=== PATIENT | female | born 1960 | race Caucasian/White ===

== ENCOUNTER 2016-07-08 17:22 | Inpatient (IN) | payer OTHER, MEDICAID, MEDICARE ==
[~2016-07-08] VITALS: Ht 167.6 cm; Wt 68.0 kg
[~2016-07-08 17:22] MED LIST: GABA-531 PO; LEVOTHROID PO; TRAM50TA4 PO
[2016-07-08] MEDS ORDERED: LEVE500T53 PO (17:53)
[2016-07-08] MEDS ORDERED: DIAZ2 PO (17:53)
[2016-07-08] MEDS ORDERED: LEVO112T4 PO (17:53)
[2016-07-08] MEDS ORDERED: NORT25 PO (17:53)
[2016-07-08] MEDS ORDERED: PANT40TA25 PO (17:53)
[2016-07-08] MEDS ORDERED: FOLI1 PO (17:53)
[2016-07-08] MEDS ORDERED: SPIR50 PO (17:53)
[2016-07-08] MEDS ORDERED: BUME1TAB30 PO (17:53)
[2016-07-08] MEDS ORDERED: ACAM333T7 PO (17:53)
[2016-07-08] MEDS ORDERED: PROP10 PO (17:53)
[2016-07-08] MEDS ORDERED: KCL10IV PO (17:53)
[2016-07-08] MEDS ORDERED: LACT30L PO (17:53)
[2016-07-08 18:10] LABS: BASOPHILS % (AUTO) 2.2 % (0.0-2.0); EOSINOPHILS % (AUTO) 0.6 % (1.0-6.0); HEMATOCRIT 39.3 % (36-46); HEMOGLOBIN 13.2 g/dL (12.0-16.0); LYMPHOCYTES # (AUTO) 2.4 K/uL (1.0-4.8); LYMPHOCYTES % (AUTO) 30.2 % (22.0-44.0); MEAN CORPUSCULAR HEMOGLOBIN 31.7 pg (26.0-34.0); MEAN CORPUSCULAR HGB CONC 33.5 G/dL (31.0-37.0); MEAN CORPUSCULAR VOLUME 95 fL (80-100); MONOCYTES # (AUTO) 0.4 K/uL (0.1-1.0); MONOCYTES % (AUTO) 4.9 % (2.0-9.0); NEUTROPHILS # (AUTO) 4.9 K/uL (1.8-7.7); NEUTROPHILS % (AUTO) 62.1 % (40.0-70.0); PLATELET COUNT (AUTO) 244 K/uL (150-450); RED BLOOD CELL COUNT(AUTO) 4.15 MIL/uL (4.00-5.20); RED CELL DISTRIBUTION WIDTH 13.1 % (11.5-14.5); WHITE BLOOD COUNT (AUTO) 7.9 K/uL (4.5-11.0)
[2016-07-08 18:29] LABS: ANION GAP 11 mmol/L (8-16); CALCIUM, TOTAL 9.2 mg/dL (8.8-10.5); CARBON DIOXIDE 26 mmol/L (22-29); CHLORIDE 89 mmol/L (98-107); CREATININE 0.61 mg/dL (0.60-1.30); GLOMERULAR FILTR. RATE CALC > 60 mL/min (>60); POTASSIUM 4.7 mmol/L (3.5-5.1); SODIUM SERUM 126 mmol/L (136-145); UREA NITROGEN, BLOOD 9 mg/dL (7-18)
[2016-07-08 18:34] LABS: ALANINE AMINOTRANSFERASE 20 U/L (12-78); ALBUMIN 4.4 g/dL (3.4-5.0); BILIRUBIN,TOTAL 0.4 mg/dL (0.1-1.0); CREATINE KINASE, TOTAL 40 U/L (26-192); TOTAL PROTEIN, SERUM 8.6 g/dL (6.4-8.2)
[2016-07-08 18:40] LABS: INR 1.2 (0.9-1.1); PROTHROMBIN TIME 12.3 SEC (9.4-11.6)
[2016-07-08 18:46] LABS: SALICYLATE < 2.8 mg/dL (2.8-20.0)
[2016-07-08 18:50] LABS: ACETAMINOPHEN < 2 mcg/mL (10-30)
[2016-07-08 18:58] LABS: ASPARTATE AMINOTRANSFERASE 26 U/L (15-37)
[2016-07-08] MEDS ORDERED: SODIUM CHLORIDE 0.9% 1,000 ML IV ONE (19:15)
[2016-07-08 19:19] LABS: APPEARANCE,URINE CLEAR (CLEAR); GLUCOSE, URINE (UA) NEGATIVE (NEGATIVE); KETONES,URINE NEGATIVE (NEGATIVE); LEUKOCYTE ESTERASE ,URINE NEGATIVE (NEGATIVE); OCCULT BLOOD,URINE TRACE (NEGATIVE); PROTEIN,URINE NEGATIVE (NEGATIVE)
[2016-07-08] MEDS ORDERED: KDUR10 PO (19:20)
[2016-07-08] MEDS ORDERED: PROP20 PO (19:20)
[2016-07-08 19:25] LABS: ADD UA MICROSCOPIC YES
[2016-07-08 19:40] LABS: SQUAMOUS EPITHELIAL CELL,UR Few /LPF (None Seen)
[2016-07-08 19:48] LABS: RBC,URINE 0-2 /HPF (0-2)
[2016-07-08 19:49] LABS: WBC,URINE None Seen /HPF (0-5)
[2016-07-08] MEDS ORDERED: HALOPERIDOL LACTATE 5 MG/ML VIAL IM ONE (20:00)
[2016-07-08] MEDS ORDERED: DiphenhydrAMINE HCL 50 MG/ML VIAL IM ONE (20:00)
[2016-07-08] MEDS ORDERED: ZOLPIDEM TARTRATE 10 MG TABLET PO PRN (22:30)
[2016-07-08] MEDS ORDERED: HALOPERIDOL 5 MG TABLET PO PRN (22:30)
[2016-07-09 01:23] VITALS: BP 149/89
[2016-07-09] MEDS: LORazepam 2 MG TABLET PO PRN ×2 (03:01→13:08)
[2016-07-09 05:31] LABS: GLUCOSE,POINT OF CARE 116 MG/DL (70-110)
[2016-07-09 10:41] VITALS: BP 144/86
[2016-07-09] MEDS ORDERED: LACTULOSE 20 GM/30 ML SOLUTION UDCUP PO PRN (12:45)
[2016-07-09] MEDS: SODIUM CHLORIDE 1 GM TABLET PO SCH ×2 (13:47→16:59)
[2016-07-09] MEDS ORDERED: PANT40TA25 PO (16:23)
[2016-07-09] MEDS ORDERED: NACL1 PO (16:25)
[2016-07-09] MEDS ORDERED: LevETIRAcetam 500 MG TABLET PO SCH (17:00)
[2016-07-10] MEDS ORDERED: LEVOTHYROXINE SODIUM 112 MCG TABLET PO SCH (07:00)
[2016-07-10] MEDS ORDERED: PANTOPRAZOLE SODIUM 40 MG DR TABLET PO SCH (09:00)
[2016-07-10] MEDS ORDERED: FOLIC ACID 1 MG TABLET PO SCH (09:00)
[2016-07-10] MEDS ORDERED: SERTRALINE HCL 50 MG TABLET PO SCH (09:00)
== END 2016-07-09 18:25 | disposition short-term general hospital (02) | DRG 885 ==
LOC: EMS 17:23 → 3EI 23:30
DX: F33.2 Major depressive disorder, recurrent severe without psychotic features (principal); E87.1 Hypo-osmolality and hyponatremia; E03.9 Hypothyroidism, unspecified; F10.10 Alcohol abuse, uncomplicated; F14.10 Cocaine abuse, uncomplicated; I10 Essential (primary) hypertension; K21.9 Gastro-esophageal reflux disease without esophagitis; K74.60 Unspecified cirrhosis of liver; M19.90 Unspecified osteoarthritis, unspecified site; R56.9 Unspecified convulsions; T42.4X2A Poisoning by benzodiazepines, intentional self-harm, initial encounter; T43.222A Poisoning by selective serotonin reuptake inhibitors, intentional self-harm, initial encounter; G89.29 Other chronic pain; G62.9 Polyneuropathy, unspecified; Z98.51 Tubal ligation status; Z87.442 Personal history of urinary calculi; Z88.2 Allergy status to sulfonamides; Z88.8 Allergy status to other drugs, medicaments and biological substances; Z79.899 Other long term (current) drug therapy; Y93.89 Activity, other specified; X83.8XXA Intentional self-harm by other specified means, initial encounter; Y92.89 Other specified places as the place of occurrence of the external cause; Y99.8 Other external cause status; Z98.890 Other specified postprocedural states; Z87.81 Personal history of (healed) traumatic fracture; Z83.79 Family history of other diseases of the digestive system
CPT/HCPCS: 82962; 93005; 96360; 96361; 96372; 99285; G0480; G0481; J1200; J1630; J7030

== ENCOUNTER 2022-04-29 21:58 | Emergency (ER) | payer MEDICARE, MEDICAID ==
[~2022-04-29] VITALS: Ht 167.6 cm; Wt 64.9 kg
[~2022-04-29 21:58] MED LIST changes: +FOLI-130 PO; -GABA-531 PO; +LEVE500T20 PO; +LEVO112T4 PO; -LEVOTHROID PO; +NACL1 PO; +PANT-31 PO; -TRAM50TA4 PO
[2022-04-29] MEDS ORDERED: SODIUM CHLORIDE 0.9% 1,000 ML IV ONE (22:30)
[2022-04-29 22:52] LABS: ANION GAP 16 mmol/L (8-16); CALCIUM, TOTAL 9.7 mg/dL (8.8-10.5); CARBON DIOXIDE 24 mmol/L (22-29); CHLORIDE 100 mmol/L (98-107); CREATININE 0.61 mg/dL (0.60-1.30); GLUCOSE,RANDOM 111 mg/dL (70-110); POTASSIUM 3.8 mmol/L (3.5-5.1); SODIUM SERUM 140 mmol/L (136-145); UREA NITROGEN, BLOOD 5 mg/dL (7-18)
[2022-04-29 22:54] LABS: GLOMERULAR FILTR. RATE CALC > 60 mL/min (>60)
[2022-04-29 22:56] LABS: BASOPHILS % (AUTO) 1.1 % (0.0-2.0); EOSINOPHILS % (AUTO) 1.1 % (1.0-6.0); HEMATOCRIT 48.5 % (36-46); HEMOGLOBIN 16.2 g/dL (12.0-16.0); LYMPHOCYTES # (AUTO) 2.6 K/uL (1.0-4.8); LYMPHOCYTES % (AUTO) 35.7 % (22.0-44.0); MEAN CORPUSCULAR HEMOGLOBIN 34.8 pg (26.0-34.0); MEAN CORPUSCULAR HGB CONC 33.5 G/dL (31.0-37.0); MEAN CORPUSCULAR VOLUME 104 fL (80-100); MONOCYTES # (AUTO) 0.4 K/uL (0.1-1.0); MONOCYTES % (AUTO) 5.4 % (2.0-9.0); NEUTROPHILS # (AUTO) 4.1 K/uL (1.8-7.7); NEUTROPHILS % (AUTO) 56.7 % (40.0-70.0); PLATELET COUNT (AUTO) 139 K/uL (150-450); RED BLOOD CELL COUNT(AUTO) 4.66 MIL/uL (4.00-5.20); RED CELL DISTRIBUTION WIDTH 13.3 % (11.5-14.5)
[2022-04-29 22:58] LABS: ALANINE AMINOTRANSFERASE 33 U/L (12-78); ALBUMIN 4.9 g/dL (3.4-5.0); ALKALINE PHOSPHATASE 177 U/L (46-116); ASPARTATE AMINOTRANSFERASE 56 U/L (15-37); BILIRUBIN,TOTAL 0.7 mg/dL (0.1-1.0); TOTAL PROTEIN, SERUM 8.7 g/dL (6.4-8.2)
[2022-04-29 23:07] LABS: ACETAMINOPHEN < 2 mcg/mL (10-30)
[2022-04-29 23:24] LABS: SALICYLATE 2.7 mg/dL (2.8-20.0)
[2022-04-29] MEDS ORDERED: LORazepam 1 MG TABLET PO ONE (23:30)
[2022-04-30] MEDS ORDERED: DiphenhydrAMINE HCL 50 MG/ML VIAL ONE (00:07)
[2022-04-30] MEDS ORDERED: HALOPERIDOL LACTATE 5 MG/ML VIAL ONE (00:07)
[2022-04-30] MEDS ORDERED: LORazepam 2 MG/ML VIAL IM ONE (00:15)
[2022-04-30] MEDS ORDERED: DiphenhydrAMINE HCL 50 MG/ML VIAL IM ONE (00:15)
[2022-04-30] MEDS ORDERED: HALOPERIDOL LACTATE 5 MG/ML VIAL IM ONE (00:15)
[2022-04-30 08:31] VITALS: BP 159/82
== END 2022-04-30 09:12 | disposition home or self-care (01) ==
LOC: EMS 22:00
DX: R45.851 Suicidal ideations (principal); F10.10 Alcohol abuse, uncomplicated; E03.9 Hypothyroidism, unspecified; G62.9 Polyneuropathy, unspecified; G89.29 Other chronic pain; Z98.51 Tubal ligation status; Z98.890 Other specified postprocedural states; Z88.2 Allergy status to sulfonamides; Z88.8 Allergy status to other drugs, medicaments and biological substances
CPT/HCPCS: 99285; 96360; 80053; 85025; 36415; 96372; G0480; J7030; J1200; J1630; J2060; G0481; G0482

== ENCOUNTER 2022-05-01 15:27 | Inpatient (IN) | payer OTHER, MEDICAID ==
[~2022-05-01] VITALS: Ht 167.6 cm; Wt 64.0 kg
[2022-05-01 16:11] LABS: BASOPHILS % (AUTO) 0.7 % (0.0-2.0); HEMOGLOBIN 15.6 g/dL (12.0-16.0); LYMPHOCYTES # (AUTO) 1.5 K/uL (1.0-4.8); MONOCYTES # (AUTO) 0.3 K/uL (0.1-1.0); NEUTROPHILS # (AUTO) 3.1 K/uL (1.8-7.7)
[2022-05-01 16:14] LABS: EOSINOPHILS % (AUTO) 1.2 % (1.0-6.0); HEMATOCRIT 46.3 % (36-46); LYMPHOCYTES % (AUTO) 30.5 % (22.0-44.0); MEAN CORPUSCULAR HEMOGLOBIN 35.1 pg (26.0-34.0); MEAN CORPUSCULAR HGB CONC 33.7 G/dL (31.0-37.0); MEAN CORPUSCULAR VOLUME 104 fL (80-100); MONOCYTES % (AUTO) 6.5 % (2.0-9.0); NEUTROPHILS % (AUTO) 61.1 % (40.0-70.0); PLATELET COUNT (AUTO) 132 K/uL (150-450); RED BLOOD CELL COUNT(AUTO) 4.45 MIL/uL (4.00-5.20); RED CELL DISTRIBUTION WIDTH 13.2 % (11.5-14.5)
[2022-05-01 16:20] LABS: ANION GAP 14 mmol/L (8-16); CALCIUM, TOTAL 9.5 mg/dL (8.8-10.5); CARBON DIOXIDE 25 mmol/L (22-29); CHLORIDE 101 mmol/L (98-107); CREATININE 0.65 mg/dL (0.60-1.30); GLOMERULAR FILTR. RATE CALC > 60 mL/min (>60); GLUCOSE,RANDOM 106 mg/dL (70-110); POTASSIUM 3.5 mmol/L (3.5-5.1); SODIUM SERUM 140 mmol/L (136-145); UREA NITROGEN, BLOOD 6 mg/dL (7-18)
[2022-05-01 16:25] LABS: ALANINE AMINOTRANSFERASE 46 U/L (12-78); ALBUMIN 4.9 g/dL (3.4-5.0); ALKALINE PHOSPHATASE 202 U/L (46-116); ASPARTATE AMINOTRANSFERASE 72 U/L (15-37); BILIRUBIN,TOTAL 0.9 mg/dL (0.1-1.0); TOTAL PROTEIN, SERUM 8.9 g/dL (6.4-8.2)
[2022-05-01 16:27] LABS: ACETAMINOPHEN < 2 mcg/mL (10-30)
[2022-05-01 16:34] LABS: SALICYLATE 2.1 mg/dL (2.8-20.0)
[2022-05-01] MEDS ORDERED: OLANZapine 5 MG RAPDIS TABLET PO PRN (17:30)
[2022-05-01] MEDS ORDERED: ZOLPIDEM TARTRATE 10 MG TABLET PO PRN (17:30)
[2022-05-01 18:12] LABS: COVID AG,FIA SOURCE NASOPHARYNGEAL
[2022-05-01] MEDS: LORazepam 2 MG TABLET PO PRN ×2 (20:11→22:56)
[2022-05-01 23:18] VITALS: BP 158/86
[2022-05-01] MEDS ORDERED: PNEUMOCOCCAL VACCINE POLYVALENT 0.5 ML VIAL [PPSV23] IM. ONE (23:45)
[2022-05-02] VITALS (17 sets, daily range): BP systolic 130–157; BP diastolic 67–88
[2022-05-02] MEDS ORDERED: PETROLATUM,WHITE 28 GM JELLY TP PRN (07:30)
[2022-05-02] MEDS ORDERED: MAG HYDROX/AL HYDROX/SIMETH ES 30 ML SUSPENSION UDCUP PO PRN (07:30)
[2022-05-02] MEDS ORDERED: ACETAMINOPHEN 325 MG TABLET PO PRN (07:30)
[2022-05-02] MEDS ORDERED: ALBUTEROL SULFATE HFA 90 MCG/PUFF 8 GM INHALER IH PRN (07:30)
[2022-05-02] MEDS ORDERED: IBUPROFEN 400 MG TABLET PO PRN (07:30)
[2022-05-02] MEDS ORDERED: GuaiFENesin/D-METHORPHAN [SUGAR-FREE] 200-20MG/10 ML SYRUP UDCUP PO PRN (07:30)
[2022-05-02] MEDS ORDERED: CloNIDine HCL 0.1 MG TABLET PO PRN (07:30)
[2022-05-02] MEDS ORDERED: MAGNESIUM HYDROXIDE SUSPENSION 30 ML UDCUP PO PRN (07:30)
[2022-05-02] MEDS ORDERED: ONDANSETRON HCL 4 MG TABLET PO PRN (07:30)
[2022-05-02] MEDS ORDERED: NICOTINE 14 MG/24 HOUR PATCH TD PRN (07:30)
[2022-05-02] MEDS ORDERED: DOCUSATE SODIUM 100 MG CAPSULE PO PRN (07:30)
[2022-05-02 08:46] LABS: CHOL/HDL RATIO 2.5 (3.9-5.7); FREE T4 (FREE THYROXINE) 0.76 ng/dL (0.76-1.46); THYROID STIMULATING HORMONE 0.71 uIU/mL (0.36-3.74)
[2022-05-02] MEDS: LevETIRAcetam 500 MG TABLET PO SCH ×2 (08:49→16:03)
[2022-05-02] MEDS: PANTOPRAZOLE SODIUM 40 MG DR TABLET PO SCH (08:50)
[2022-05-02] MEDS: FOLIC ACID 1 MG TABLET PO SCH (08:50)
[2022-05-02] MEDS: LORazepam 2 MG TABLET PO PRN ×2 (08:55→12:56)
[2022-05-02] MEDS: LOPERAMIDE HCL 2 MG CAPSULE PO PRN (11:14)
[2022-05-02] MEDS: GABAPENTIN 300 MG CAPSULE PO SCH (18:09)
[2022-05-03 01:45] VITALS: BP 133/78
[2022-05-03] MEDS: LORazepam 2 MG TABLET PO PRN ×2 (02:18→08:27)
[2022-05-03 05:35] VITALS: BP 132/82
[2022-05-03 06:08] VITALS: BP 132/82
[2022-05-03] MEDS ORDERED: LEVOTHYROXINE SODIUM 112 MCG TABLET PO SCH (06:30)
[2022-05-03] MEDS: LOPERAMIDE HCL 2 MG CAPSULE PO PRN ×2 (07:31→12:56)
[2022-05-03] MEDS: FOLIC ACID 1 MG TABLET PO SCH (08:01)
[2022-05-03] MEDS: GABAPENTIN 300 MG CAPSULE PO SCH (08:02)
[2022-05-03] MEDS: PANTOPRAZOLE SODIUM 40 MG DR TABLET PO SCH (08:02)
[2022-05-03] MEDS: LevETIRAcetam 500 MG TABLET PO SCH (08:02)
[2022-05-03 08:37] VITALS: BP 98/61
[2022-05-03 10:53] VITALS: BP 143/88
== END 2022-05-03 13:00 | disposition home or self-care (01) | DRG 885 ==
LOC: EMS 15:27 → B3A 19:24
PROVIDERS: ADMIT Psychiatry & Neurology Child & Adolescent Psychiatry; ATTEND Psychiatry & Neurology Child & Adolescent Psychiatry
DX: F31.4 Bipolar disorder, current episode depressed, severe, without psychotic features (principal); F10.229 Alcohol dependence with intoxication, unspecified; R45.851 Suicidal ideations; Z20.822 Contact with and (suspected) exposure to COVID-19; D69.6 Thrombocytopenia, unspecified; E03.9 Hypothyroidism, unspecified; K21.9 Gastro-esophageal reflux disease without esophagitis; Y90.6 Blood alcohol level of 120-199 mg/100 ml; G62.9 Polyneuropathy, unspecified; G89.29 Other chronic pain; K76.9 Liver disease, unspecified; Z87.442 Personal history of urinary calculi; Z28.21 Immunization not carried out because of patient refusal; Z88.2 Allergy status to sulfonamides; Z88.8 Allergy status to other drugs, medicaments and biological substances; Z79.899 Other long term (current) drug therapy; Z87.440 Personal history of urinary (tract) infections; Z98.51 Tubal ligation status; Z79.890 Hormone replacement therapy
CPT/HCPCS: 80053; 80061; 84439; 84443; 85025; 90732; 99285; G0480; G0481

== ENCOUNTER 2022-05-02 22:18 | Emergency (ER) | payer MEDICARE, MEDICAID ==
[~2022-05-02] VITALS: Ht 170.2 cm; Wt 63.6 kg
[2022-05-03] MEDS ORDERED: ACETAMINOPHEN 500 MG TABLET PO ONE (00:15)
[2022-05-03 01:31] VITALS: BP 131/81
== END 2022-05-03 01:35 ==
LOC: EMS 22:18
DX: F99 Mental disorder, not otherwise specified (principal); E03.9 Hypothyroidism, unspecified; K76.9 Liver disease, unspecified; Z87.442 Personal history of urinary calculi; Z87.440 Personal history of urinary (tract) infections; Z98.51 Tubal ligation status; Z88.2 Allergy status to sulfonamides; Z87.820 Personal history of traumatic brain injury
CPT/HCPCS: 99283